=== PATIENT | male | born 1995 | race Caucasian/White ===

== ENCOUNTER 2019-02-16 18:30 | Emergency (ER) | payer SELFPAY ==
[~2019-02-16] VITALS: Ht 170.2 cm; Wt 59.0 kg
[2019-02-16 19:38] VITALS: BP 116/75
[2019-02-16] MEDS ORDERED: METH4TAB2 PO (19:45)
[2019-02-16] MEDS ORDERED: EPIPEN 2-P0.3 MG/0.3 IJ (19:45)
--- NOTE | 2019-02-16 19:46 | PHYS DOC ---
Past Medical History Past Medical History: No Pertinent History Past Surgical History: No Surgical History Alcohol Use: None Drug Use: None Adult General Chief Complaint Chief Complaint: INSECT BITE [facility] HPI Patient is a 24 year old male who presents with a sting from a wasp near his right holiness. There is erythema to his holiness and extending into his right eyelids. He states that he did start having a rash that was generalized and felt like his chest might be tight. He states he took Benadryl at home. This was approximately one hour ago. He states that the rash has now resolved and his breathing is fine. He denies any previous history with anaphylaxis. Review of Systems Review of Systems Constitutional: Denies fever or chills [] Eyes: Denies change in visual acuity, redness, or eye pain [] HENT: Denies nasal congestion or sore throat [] Respiratory: Denies cough or shortness of breath [] Cardiovascular: No additional information not addressed in HPI [] GI: Denies abdominal pain, nausea, vomiting, bloody stools or diarrhea [] : Denies dysuria or hematuria [] Musculoskeletal: Denies back pain or joint pain [] Integument: See history of present illness Neurologic: Denies headache, focal weakness or sensory changes [] Endocrine: Denies polyuria or polydipsia [] All other systems were reviewed and found to be within normal limits, except as documented in this note. Physical Exam Physical Exam Constitutional: Well developed, well nourished, no acute distress, non-toxic appearance. [] HENT: Normocephalic, bilateral external ears normal, oropharynx moist, no oral exudates, nose normal. [] Eyes: PERRLA, EOMI, conjunctiva normal, no discharge. [] Neck: Normal range of motion, no tenderness, supple, no stridor. [] Cardiovascular:Heart rate regular rhythm, no murmur [] Lungs & Thorax: Bilateral breath sounds clear to auscultation [] Skin: Erythema to the right holiness extending into the patient's right upper and lower eyelids with no edema, no sign of embedded stinger Neurologic: Alert and oriented X 3, normal motor function, normal sensory function, no focal deficits noted. [] Psychologic: Affect normal, judgement normal, mood normal. [] Current Patient Data Vital Signs Vital Signs Date Time Temp Pulse Resp B/P (MAP) Pulse Ox O2 Delivery O2 Flow Rate FiO2 02/16/19 19:38 98.5 75 16 116/75 (89) 99 Room Air 98.5 EKG EKG [] Radiology/Procedures Radiology/Procedures [] Course & Med Decision Making Course & Med Decision Making Pertinent Labs and Imaging studies reviewed. (See chart for details) []The patient is been given a prescription for Medrol Dosepak. He is to continue scheduled Benadryl. He is to call 911 or return to the emergency department immediately if worsening. He has been given a prescription for EpiPen that is been counseled to cure those with him in case he is stung and developed shortness of air. He is in agreement with this plan. Dragon Disclaimer Appfolio Disclaimer This electronic medical record was generated, in whole or in part, using a voice recognition dictation system. Departure Departure Impression: Primary Impression: Hymenoptera sting Disposition: HOME, SELF-CARE Condition: STABLE Referrals: NO PCP (PCP) Patient Instructions: Anaphylactic Reaction, [id number], Bee, Wasp, or Hornet Sting Additional Instructions: Take the Medrol as prescribed. You may continue to use scheduled Benadryl as the package directs. If worsening return to the emergency department. If you have to use the EpiPen return to the emergency department or call 911. Scripts Epinephrine (EPIPEN 2-CARLOS ENRIQUE) 0.3 Mg/0.3 Ml Auto.injct 0.3 MG IJ 1X for hymenoptera sting, #1 SYR 3 Refills Prov: LEDY TOURE APRN 02/16/19 Methylprednisolone (MEDROL) 4 Mg Tab.ds.pk 1 PKG PO UD for allergic reaction, #1 PKG Prov: LEDY TOURE [employer] 02/16/19 LEDY TOURE [employer] Feb 16, 2019 19:46
== END 2019-02-16 19:59 | disposition home or self-care (01) ==
LOC: ER 18:30
DX: T63.461A Toxic effect of venom of wasps, accidental (unintentional), initial encounter (principal); L53.9 Erythematous condition, unspecified; Y92.89 Other specified places as the place of occurrence of the external cause
CPT/HCPCS: 99283